=== PATIENT | female | born 1975 | race Caucasian/White ===

== ENCOUNTER 2021-09-26 21:55 | Emergency (ER) | payer OTHER ==
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
== END 2021-09-26 23:00 | disposition home or self-care (01) ==
LOC: LL.ED 21:55
DX: S93.601A Unspecified sprain of right foot, initial encounter (principal); I10 Essential (primary) hypertension; Z88.5 Allergy status to narcotic agent; Z79.899 Other long term (current) drug therapy; X50.0XXA Overexertion from strenuous movement or load, initial encounter
CPT/HCPCS: 73630-RT; 99283-25